=== PATIENT | male | born 1945 | race Caucasian/White ===

== ENCOUNTER → 2018-01-29 16:30 | Outpatient (CLI) | payer OTHER, MEDICARE, SELFPAY ==
[2018-01-29 18:02] LABS: Basophils % 0.5 % (0.1-2.0); Eosinophils # 0.2 K/mm3 (0.0-0.4); Eosinophils % 3.2 % (0.1-12.0); Hematocrit 48.3 % (42.0-52.0); Hemoglobin 15.9 g/dL (14.1-18.0); Lymphocytes # 1.2 K/mm3 (0.7-4.5); Lymphocytes % 17.7 K/mm3 (10-50); Mean Corpuscular HGB Conc 32.9 g/dL (31.8-35.4); Mean Corpuscular Hemoglobin 30.2 pg (27.0-31.2); Mean Platelet Volume 8.4 fl (7.4-10.4); Monocytes # 0.6 K/mm3 (0.1-1.0); Monocytes % 8.6 % (1.7-9.3); Neutrophils # 4.6 K/mm3 (1.8-7.8); Platelet Count 203 K/mm3 (142-424); Red Blood Count 5.25 M/mm3 (4.60-6.20); Red Cell Distribution Width 13.5 % (11.5-17.5); White Blood Count 6.6 K/mm3 (4.8-10.8)
[2018-01-29 21:24] LABS: Anion Gap 12.1 mEq/L (5-15); Blood Urea Nitrogen 16 mg/dL (7-18); Carbon Dioxide 28 mmol/L (21.0-32.0); Chloride 104 mmol/L (98-107); Creatinine,Serum 1.11 mg/dL (0.70-1.30); Estimated Glomerular Filt Rate 65 ml/min (>60); GFR (African American) 79 ML/MIN (>60); Glucose 109 mg/dL (74-106); Potassium 4.1 mmoL/L (3.5-5.1); Sodium 140 mmol/L (136-145)
== END ==
PROVIDERS: PCP Family Medicine; Visit Provider Otolaryngology
DX: Z01.818 Encounter for other preprocedural examination (principal); C44.201 Unspecified malignant neoplasm of skin of unspecified ear and external auricular canal
CPT/HCPCS: 36415; 80048; 85025; 93005

== ENCOUNTER 2018-02-15 07:50 | Day surgery (SDC) | payer OTHER, MEDICARE, SELFPAY ==
[2018-02-14 10:31] VITALS: BMI 31.0
[2018-02-15 08:24] VITALS: BP 145/75; PULSE 51; RESP 16; TEMP 36.2; O2SAT 97
--- NOTE | 2018-02-15 08:34 | P.PN_ITS ---
[facility] Anesthesia Checklist - Patient Identification Patient Identification: Arm Band - Structural Data Admitted From: Home Planned Operative Procedure/s: excision bilateral ear lesions Consent for Planned Operative Procedure(s) Verified: Yes Verified Documents: Surgical Consent, History and Physical - NPO Status Verified Time NPO: 00:00 - Additional verifications Anesthesia Reactions: No - Airway Assessment C-Spine Mobility Assessed: Yes (mp1) TMJ Mobility Assessed: Yes Dentition: Good Dentition - Neurological Assessment Level of Consciousness: Awake, Alert - Anesthesia Plan Anesthesia Risk discussed: Yes Anesthesia Plan: Verified ASA Class: III Anesthesia Type: MAC [facility] Anesthesia HX Medical History: Reports:: Cancer (TONGUE), Diabetes Mellitus Type 2, Hyperlipidemia, Hypertension Denies:: Diabetes Mellitus Type 1, Internal Pacemaker, MRSA Laterality Cases: Right: Arthroscopy Knee, Bilateral: Tonsillectomy, Other Other Surgeries: Yes: Appendectomy, Other (ca tongue). No: Pacemaker Amputation: No Fractures: No *Family Hx:: Cancer, Diabetes, Hyperlipidemia, Hypertension, Thyroid Disorder
[2018-02-15 08:39] LABS: POC Glucose,Bedside 131 mg/dL (70-110)
[2018-02-15 10:45] VITALS: BP 102/55; PULSE 41; RESP 18; TEMP 36.3; O2SAT 94
[2018-02-15 11:00] VITALS: BP 109/56; PULSE 41; RESP 18; O2SAT 97
[2018-02-15 11:15] VITALS: BP 104/57; PULSE 43; RESP 18; O2SAT 99
[2018-02-15 11:20] VITALS: BP 127/81; PULSE 49; RESP 18; O2SAT 98
--- NOTE | 2018-02-15 14:40 | HMH.OPNOTE ---
Date of procedure: 02/15/18 Pre-op Diagnosis:: 1. 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 Excision of malignant neoplasm right ear 3.5cm with tissue rearrangement geometric plastic repair 2. Excision of malignant neoplasm left ear 1.8cm with tissue rearrrangement geometric plastic repair Surgeon:: Surendra Trevino MD WET PAN MIXER:: Emile Medrano Anesthesia: MAC Estimated blood loss (mL): 5 Operative findings:: same Operative note:: With the patient under a MAC anesthetic the right ear was prepped and draped. The perilesional area was infiltrated with 4 cc of 2% lidocaine containing epinephrine. The Lesion was marked out, it involved the perimeter of the ear as well as the anterior and posterior surfaces and measured, 3.5 cm. The Markup was incised and the lesion was excised to sub-adjacent cartilage. Bleeding was stopped with bipolar cautery. The specimen was submitted. Flaps were elevated and a tissue rearrangement geometric plastic repair was done with interrupted 5-0 nylon sutures. A Dermabond dressing was applied. The patient was repositioned and the left ear was prepped and draped. The perilesional area was infiltrated with 2 cc of 2% lidocaine containing epinephrine. The Lesion was marked out on the markup measured 1.8 cm. The Markup was incised and the lesion was excised deep into the fat of the ear lobule. Bleeding was stopped with bipolar cautery. Flaps were elevated and tissue rearrangement geometric plastic repair was done with interrupted 5-0 nylon sutures. Dermabond dressing was applied. Condition: stable Disposition: same day Complications:: none
== END 2018-02-15 11:20 | disposition home or self-care (01) ==
LOC: OR 07:53
PROVIDERS: PCP Family Medicine; Visit Provider Otolaryngology
PROC: (CPT 14060; principal; 2018-02-15 09:20)
DX: C44.212 Basal cell carcinoma of skin of right ear and external auricular canal (principal); C44.229 Squamous cell carcinoma of skin of left ear and external auricular canal
CPT/HCPCS: 14060 ×2; 82962; 96374